=== PATIENT | female | born 2000 | race Caucasian/White ===

== ENCOUNTER 2021-12-21 05:16 | Emergency (ER) | payer OTHER ==
[~2021-12-21] VITALS: Ht 157.5 cm; Wt 50.5 kg
[2021-12-21 05:25] VITALS: BP 143/86; TEMP 97.1
[2021-12-21] MEDS ORDERED: MOBIC15 MG PO (05:28)
[2021-12-21 06:01] LABS: COLLECTION METHOD CLEAN CATCH
[2021-12-21 06:12] LABS: URINE APPEARANCE Clear (CLEAR/HAZY); URINE BLOOD 2+ (NEGATIVE); URINE COLOR Yellow (YELLOW); URINE GLUCOSE Negative (NEGATIVE); URINE KETONE Negative (NEGATIVE); URINE NITRATE Negative (NEGATIVE); URINE PROTEIN(semi-quant) 1+ (NEGATIVE); URINE UROBILINOGEN 0.2 E.U/dL (0.2-1.0)
[2021-12-21 06:18] LABS: MUCOUS Present (NOT PRESENT); SQUAMOUS EPITHELIAL 0-2 /hpf (0-10); URINE BACTERIA Rare /hpf (NONE SEEN); URINE RBC 20-50 /hpf (0-2)
[2021-12-21 06:33] VITALS: PULSE 88
== END 2021-12-21 06:34 | disposition home or self-care (01) ==
LOC: COL.ER 05:16
PROVIDERS: Emergency Medicine
DX: R10.32 Left lower quadrant pain (principal); R31.9 Hematuria, unspecified; R11.2 Nausea with vomiting, unspecified; G89.29 Other chronic pain; Z32.02 Encounter for pregnancy test, result negative